=== PATIENT | female | born 1955 | race Caucasian/White ===

== ENCOUNTER 2020-08-11 12:30 | Observation (INO) ==
[2020-08-11] MEDS ORDERED: NS 0.9% 1000 ml BAG 1,000 ML IV ONE ×2 (12:58→14:32)
[2020-08-11 13:28] LABS: ABS Lymphocytes 0.9 10^3/ul (1.0-4.8); ABS Monocytes 0.6 10^3/ul (0-0.8); ABS Neutrophils 8.3 10^3/ul (1.5-7.7); Eosinophil % 0.1 %; Hematocrit 43 % (35-47); Hemoglobin 14.4 g/dL (12.0-16.0); Lymphocyte % 8.7 %; Mean Corpuscular HGB Conc 34 g/dL (31-36); Mean Corpuscular Hemoglobin 29 pg (27-31); Mean Corpuscular Volume 87 fL (80-97); Mean Platelet Volume 7.7 fL (7.4-10.4); Platelet Count 261 10^3/uL (150-450); Red Blood Count 4.95 10^6 /uL (3.70-4.87); Red Cell Distribution Width 15 % (10-15); White Blood Count 9.9 10^3/uL (3.5-10.8)
[2020-08-11 13:55] LABS: ALT 18 U/L (7-52); AST 30 U/L (13-39); Albumin 4.7 g/dL (3.2-5.2); Albumin/Globulin Ratio 1.5 (1-3); Alkaline Phosphatase 82 U/L (35-149); Anion Gap 11 mmol/L (2-11); Blood Urea Nitrogen 37 mg/dL (6-24); CO2 Carbon Dioxide 28 mmol/L (22-32); Calcium 10.4 mg/dL (8.6-10.3); Chloride 101 mmol/L (101-111); EGFR African American 30.6 (>60); EGFR Non-African American 25.3 (>60); Globulin 3.1 g/dL (2-4); Glucose 216 mg/dL (70-100); Potassium 3.8 mmol/L (3.5-5.0); Sodium 140 mmol/L (135-145); Total Protein 7.8 g/dL (6.4-8.9)
[2020-08-11 14:00] LABS: Activated Partial Thrombo Time 16.6 seconds (26.0-38.0); INR 1.23 (0.86-1.15)
[2020-08-11 14:09] LABS: Acetaminophen < 15 mcg/mL; Alcohol, S 11 mg/dL (<10); Salicylate < 2.50 mg/dL (<30)
[2020-08-11 14:10] LABS: Troponin I 0.03 ng/mL (<0.03)
[2020-08-11 14:23] LABS: TSH Ultra Thyroid Stim Horm 2.09 mcIU/mL (0.34-5.60)
[2020-08-11 16:46] LABS: Troponin I 0.03 ng/mL (<0.03)
[2020-08-11 17:20] LABS: Urine Benzodiazepine Screen None Detected (None Detect); Urine Cannabinoids Screen None Detected (None Detect); Urine Opiates Screen None Detected (None Detect)
[2020-08-11 17:28] LABS: Urine Appearance Cloudy; Urine Bilirubin Negative (Negative); Urine Blood 1+ (Negative); Urine Color Yellow; Urine Glucose Negative (Negative); Urine Ketones 1+ (Negative); Urine Nitrite Negative (Negative); Urine Protein 1+(30 mg/dL) (Negative); Urine Specific Gravity 1.016 (1.002-1.030); Urine Urobilinogen Negative (Negative)
[2020-08-11 17:32] LABS: Urine Bacteria 3+ (Absent); Urine Red Blood Cell 1+(3-5/hpf) (Absent); Urine Squamous Epithelial Cell Present (Absent); Urine White Blood Cell 2+(11-20/hpf) (Absent)
[2020-08-11] MEDS ORDERED: cefTRIAXone VIAL 1,000 MG VIAL IM ONE (17:38)
[2020-08-11] MEDS ORDERED: cefTRIAXone 1 gm/50 mL NS BAG 1 GM/50 ML BAG IV ONE (17:42)
[2020-08-11] MEDS ORDERED: Lactated Ringers 1000 ml BAG 1,000 ML IV SCH (19:00)
[2020-08-11] MEDS ORDERED: NS 0.9% 1000 ml BAG 1,000 ML IV SCH (19:15)
[2020-08-11 20:05] LABS: Vitamin D Total 25(OH) 11.6 ng/mL (20-50)
[2020-08-11 20:14] LABS: C Reactive Protein 20.44 mg/L (<8.01)
[2020-08-11] MEDS: Heparin 5000 UNITS/ML 1 mL VIAL SUBCUT SCH (22:06)
[2020-08-12] MEDS ORDERED: Metoclopramide 5 MG/ML VIAL (10 mg) IV SLOW PU PRN (01:01)
[2020-08-12 05:55] LABS: ABS Eosinophils 0.1 10^3/ul (0-0.6); ABS Lymphocytes 1.6 10^3/ul (1.0-4.8); ABS Monocytes 0.5 10^3/ul (0-0.8); ABS Neutrophils 4.5 10^3/ul (1.5-7.7); Hematocrit 35 % (35-47); Hemoglobin 11.6 g/dL (12.0-16.0); Lymphocyte % 23.7 %; Mean Corpuscular HGB Conc 33 g/dL (31-36); Mean Corpuscular Hemoglobin 29 pg (27-31); Mean Corpuscular Volume 87 fL (80-97); Mean Platelet Volume 7.7 fL (7.4-10.4); Platelet Count 201 10^3/uL (150-450); Red Blood Count 3.98 10^6 /uL (3.70-4.87); Red Cell Distribution Width 15 % (10-15); White Blood Count 6.7 10^3/uL (3.5-10.8)
[2020-08-12 06:24] LABS: Calcium 8.7 mg/dL (8.6-10.3); EGFR African American 77.5 (>60); EGFR Non-African American 64.1 (>60); Potassium 3.7 mmol/L (3.5-5.0)
[2020-08-12] MEDS: Cholecalciferol (VIT D3) 1,000 unit TAB PO SCH (08:02)
[2020-08-12] MEDS: Heparin 5000 UNITS/ML 1 mL VIAL SUBCUT SCH ×2 (08:03→22:15)
[2020-08-12 11:00] LABS: Folate 10.49 ng/mL (5.90-24.80)
[2020-08-12] MEDS: Multivitamins/Minerals TAB PO SCH (11:12)
[2020-08-12 12:42] LABS: Thyroid Peroxidase Antibodies 0.26 IU/mL (<9)
[2020-08-12 14:54] LABS: Calcium (PTH Intact) 10.3 mg/dL (8.6-10.3)
[2020-08-12] MEDS ORDERED: Cyanocobalamin INJ 1,000 MCG/ML VIAL 1 ML VIAL IM ONE (19:50)
[2020-08-12] MEDS: Thiamine 100 MG/ML 2 ml VIAL 500 MG in NS 0.9% 250 ml 250 ML IV SCH (22:15)
[2020-08-13 03:01] LABS: Hematocrit 38 % (35-47); Hemoglobin 11.9 g/dL (12.0-16.0); Mean Corpuscular HGB Conc 31 g/dL (31-36); Mean Corpuscular Hemoglobin 30 pg (27-31); Mean Corpuscular Volume 95 fL (80-97); Mean Platelet Volume 8.3 fL (7.4-10.4); Platelet Count 189 10^3/uL (150-450); Red Cell Distribution Width 16 % (10-15); White Blood Count 5.9 10^3/uL (3.5-10.8)
[2020-08-13 03:15] LABS: Calcium 8.5 mg/dL (8.6-10.3); EGFR African American 97.4 (>60); EGFR Non-African American 80.5 (>60); Magnesium 1.7 mg/dL (1.9-2.7); Potassium 3.3 mmol/L (3.5-5.0)
[2020-08-13] MEDS ORDERED: Magnesium Sulfate IV 1GM/100ML 1 GM/100 ML BAG IV ONE (03:24)
[2020-08-13] MEDS ORDERED: Potassium Chlor 10 meq TAB PO ONE (03:24)
[2020-08-13] MEDS: Thiamine 100 MG/ML 2 ml VIAL 500 MG in NS 0.9% 250 ml 250 ML IV SCH ×3 (05:33→22:51)
[2020-08-13] MEDS: Cholecalciferol (VIT D3) 1,000 unit TAB PO SCH (09:33)
[2020-08-13] MEDS: Multivitamins/Minerals TAB PO SCH (09:33)
[2020-08-13] MEDS: Heparin 5000 UNITS/ML 1 mL VIAL SUBCUT SCH ×2 (09:33→21:38)
[2020-08-13] MEDS ORDERED: cefTRIAXone 1 gm/50 mL NS BAG 1 GM/50 ML BAG IVPB SCH ×2 (18:30→21:10)
[2020-08-14 01:38] LABS: Anaplasma phagocytophilum Negative (Negative); B. miyamotoi PCR, B Negative (Negative); Babesia divergens/MO-1 Negative (Negative); Babesia ducani Negative (Negative); Ehrlichia chaffeensis Negative (Negative); Ehrlichia ewingii/canis Negative (Negative); Ehrlichia muris eauclairensis Negative (Negative)
[2020-08-14] MEDS: Cholecalciferol (VIT D3) 1,000 unit TAB PO SCH (08:32)
[2020-08-14] MEDS: Heparin 5000 UNITS/ML 1 mL VIAL SUBCUT SCH (08:33)
[2020-08-14] MEDS: Multivitamins/Minerals TAB PO SCH (08:33)
[2020-08-14 09:00] LABS: ABS Eosinophils 0.2 10^3/ul (0-0.6); ABS Lymphocytes 1.2 10^3/ul (1.0-4.8); ABS Monocytes 0.3 10^3/ul (0-0.8); ABS Neutrophils 3.8 10^3/ul (1.5-7.7); Eosinophil % 4.2 %; Hematocrit 38 % (35-47); Hemoglobin 12.9 g/dL (12.0-16.0); Lymphocyte % 21.6 %; Mean Corpuscular HGB Conc 34 g/dL (31-36); Mean Corpuscular Hemoglobin 30 pg (27-31); Mean Corpuscular Volume 86 fL (80-97); Nucleated Red Blood Cells % 0.1; Platelet Count 197 10^3/uL (150-450); Red Blood Count 4.37 10^6 /uL (3.70-4.87); Red Cell Distribution Width 15 % (10-15); White Blood Count 5.6 10^3/uL (3.5-10.8)
[2020-08-14 09:19] LABS: Calcium 8.9 mg/dL (8.6-10.3); EGFR African American 87.7 (>60); EGFR Non-African American 72.4 (>60); Magnesium 1.8 mg/dL (1.9-2.7); Potassium 3.5 mmol/L (3.5-5.0)
[2020-08-14] MEDS ORDERED: Sulfamethox/Trimethoprim DS TAB 800/160 mg PO SCH (21:00)
[2020-08-15 05:52] LABS: HDL Cholesterol 38.8 mg/dL
[2020-08-15] MEDS: Multivitamins/Minerals TAB PO SCH (10:15)
[2020-08-15] MEDS: Cholecalciferol (VIT D3) 1,000 unit TAB PO SCH (10:15)
[2020-08-15 19:31] LABS: Body Fluid Source Cerebral Spinal
[2020-08-15 19:40] LABS: Body Fluid Appearance Clear; Body Fluid Color Colorless; CSF Tube # 4
[2020-08-15 19:53] LABS: CSF Glucose 67 mg/dL (40-70)
[2020-08-15 20:22] LABS: Body Fluid WBC 2 /mcL
[2020-08-15 21:21] LABS: Body Fluid Total Cells Counted 5
[2020-08-16] MEDS: Multivitamins/Minerals TAB PO SCH (08:18)
[2020-08-16] MEDS: Cholecalciferol (VIT D3) 1,000 unit TAB PO SCH (08:18)
[2020-08-16] MEDS ORDERED: Al Hydrox/Mg Hydrox/Simet LIQ 30 ML UDC PO PRN (20:06)
[2020-08-17] MEDS: Multivitamins/Minerals TAB PO SCH (10:03)
[2020-08-17] MEDS: Cholecalciferol (VIT D3) 1,000 unit TAB PO SCH (10:03)
[2020-08-17 19:03] LABS: IgG Immunoblot Negative (Negative); IgM Immunoblot Negative (Negative)
[2020-08-18] MEDS: Cholecalciferol (VIT D3) 1,000 unit TAB PO SCH (08:49)
[2020-08-18] MEDS: Multivitamins/Minerals TAB PO SCH (08:50)
[2020-08-19] MEDS: Cholecalciferol (VIT D3) 1,000 unit TAB PO SCH (09:01)
[2020-08-19] MEDS: Multivitamins/Minerals TAB PO SCH (09:03)
[2020-08-19 14:43] LABS: B. garinii/B. afzellii PCR Negative (Negative); Lyme Disease Source CSF
[2020-08-20] MEDS: Multivitamins/Minerals TAB PO SCH (08:43)
[2020-08-20] MEDS: Cholecalciferol (VIT D3) 1,000 unit TAB PO SCH (08:43)
[2020-08-21] MEDS: Cholecalciferol (VIT D3) 1,000 unit TAB PO SCH (08:55)
[2020-08-21] MEDS: Multivitamins/Minerals TAB PO SCH (08:55)
[2020-08-22] MEDS: Cholecalciferol (VIT D3) 1,000 unit TAB PO SCH (09:07)
[2020-08-22] MEDS: Multivitamins/Minerals TAB PO SCH (09:08)
[2020-08-23] MEDS: Cholecalciferol (VIT D3) 1,000 unit TAB PO SCH (09:04)
[2020-08-23] MEDS: Multivitamins/Minerals TAB PO SCH (09:04)
[2020-08-24] MEDS: Multivitamins/Minerals TAB PO SCH (08:44)
[2020-08-24] MEDS: Cholecalciferol (VIT D3) 1,000 unit TAB PO SCH (08:45)
[2020-08-24 08:54] VITALS: BP 131/55
== END 2020-08-24 13:00 | disposition home or self-care (01) | DRG 724 ==
LOC: MEDTELE 12:30 → ED 12:30 → MEDTELE 21:05 → BSU 08-16 11:37
PROVIDERS: ADMIT Internal Medicine; ATTEND Psychiatry & Neurology Psychiatry